=== PATIENT | female | born 1980 | race American Indian/Alaskan Native ===

== ENCOUNTER 2017-09-05 08:51 | Emergency (ER) | payer MEDICAID ==
[2017-09-05 09:11] VITALS: RESP 16; TEMP 98
--- NOTE | 2017-09-05 10:12 | ED PDOC ---
HPI: Eye Injury/Pain Time Seen by Provider: 09/05/17 09:25 Chief Complaint (Nursing): Eye Problem Chief Complaint (Provider): Left eye problem History Per: Patient History/Exam Limitations: no limitations Onset/Duration Of Symptoms: Days (2) Current Symptoms Are (Timing): Still Present Additional Complaint(s): Patient is a 37 y/o female with no significant past medical history presenting to the emergency department for left eye irritation since yesterday with associated itchiness and discharge that developed this morning. Also notes mild swelling. Denies visual changes, fever, cough, eye pain, use of contact lenses, or other complaints. PCP: Dr. Carrillo Aguayo Past Medical History Reviewed: Historical Data, Nursing Documentation, Vital Signs Vital Signs: Last Vital Signs Temp 98 F 09/05/17 09:08 Pulse 65 09/05/17 09:08 Resp 16 09/05/17 09:08 BP 145/87 09/05/17 09:08 Pulse Ox 100 09/05/17 09:08 - Medical History PMH: No Chronic Diseases - Surgical History Surgical History: - Family History Family History: States: Unknown Family Hx - Social History Current smoker - smoking cessation education provided: No Ex-Smoker (has not smoked in the last 12 months): No Alcohol: Social Drugs: Other - Home Medications Home Medications: Ambulatory Orders Medication Instructions Recorded Famotidine [Pepcid] 20 mg PO BID #28 tab 06/06/15 Ondansetron [Zofran] 4 mg PO Q8H #9 tab 06/06/15 Ibuprofen [Motrin] 600 mg PO Q6 #30 tab 01/14/17 Tobramycin 0.3% [Tobrex 0.3% Ophth 1 drop OP Q4 #1 bottle 09/05/17 Soln] - Allergies Allergies/Adverse Reactions: Allergies Allergy/AdvReac Type Severity Reaction Status Date / Time Penicillins Allergy RASH Verified 09/05/17 09:08 Review of Systems ROS Statement: Except As Marked, All Systems Reviewed And Found Negative Constitutional: Negative for: Fever Eyes: Positive for: Other (Left eye irritation with itchiness, discharge, and mild swelling). Negative for: Pain, Vision Change Respiratory: Negative for: Cough Physical Exam - Reviewed Nursing Documentation Reviewed: Yes Vital Signs Reviewed: Yes - Physical Exam Appears: Positive for: Well, Non-toxic, No Acute Distress Head Exam: Positive for: ATRAUMATIC, NORMAL INSPECTION, NORMOCEPHALIC Skin: Positive for: Normal Color, Warm, Dry Eye Exam: Positive for: EOMI, PERRL, Conjunctival injection (left eye), Other ( mild discharge of left eye). Negative for: Normal appearance, Periorbital swelling, Periorbital tenderness, Scleral icterus Neck: Positive for: Normal Cardiovascular/Chest: Positive for: Regular Rate, Rhythm Respiratory: Negative for: Accessory Muscle Use, Respiratory Distress Extremity: Positive for: Normal ROM Neurologic/Psych: Positive for: Alert, Oriented (x3) - ECG O2 Sat by Pulse Oximetry: 100 (RA) Pulse Ox Interpretation: Normal Medical Decision Making Medical Decision Making: Time: 09:55 Initial Impression: Left eye conjunctivitis Initial plan: Reevaluation Scribe Attestation: Documented by Nikky Gallagher, acting as a scribe for Lex Villafana MD. Provider Scribe Attestation: All medical record entries made by the Scribe were at my direction and personally dictated by me. I have reviewed the chart and agree that the record accurately reflects my personal performance of the history, physical exam, medical decision making, and the department course for this patient. I have also personally directed, reviewed, and agree with the discharge instructions and disposition. Disposition - Clinical Impression Clinical Impression: Conjunctivitis - Patient ED Disposition Is Patient to be Admitted: No Doctor Will See Patient In The: Office Counseled Patient/Family Regarding: Studies Performed, Diagnosis, Need For Followup - Disposition Referrals: [facility] [Outside] Disposition: Routine/Home Disposition Time: 11:00 Condition: GOOD Additional Instructions: Follow up with your PCP in 2-3 days,. Prescriptions: Tobramycin 0.3% [Tobrex 0.3% Ophth Soln] 1 drop OP Q4 #1 bottle Instructions: Conjunctivitis (ED)
[2017-09-05 11:06] VITALS: BP 132/70; PULSE 78
[2017-09-06 19:52] VITALS: O2SAT 100
== END 2017-09-05 11:05 | disposition home or self-care (01) ==
LOC: H.ER 08:51
DX: H10.9 Unspecified conjunctivitis (principal); Z88.0 Allergy status to penicillin

== ENCOUNTER 2018-10-22 05:44 | Emergency (ER) | payer MEDICAID ==
[2018-10-22 06:02] VITALS: RESP 18; O2SAT 99
[2018-10-22] MEDS ORDERED: Morphine 4 MG/ML VIAL IVP ONE (06:37)
--- NOTE | 2018-10-22 06:56 | ED PDOC ---
Upper Extremity Pain/Injury Time Seen by Provider: 10/22/18 06:14 Chief Complaint (Nursing): Upper Extremity Problem/Injury Chief Complaint (Provider): Upper Extremity Pain History Per: Patient History/Exam Limitations: no limitations Onset/Duration Of Symptoms: Days (2x days) Current Symptoms Are (Timing): Still Present Severity: Moderate Additional Complaint(s): 38 year old female with no past medical history presents to the ED complaints of left wrist pain that started 2x days ago. Patient reports waking up yesterday morning with a moderate amount of left wrist pain. Patient is unaware of injury to her left wrist, and is unsure if she slept in an uncomfortable position. Patient reports that the pain worsened in the past 24x hours. Patient reports having trouble moving her left wrist and hand today due to pain. Patient denies having any other complaints including fevers and chills. PMD: None. Past Medical History Reviewed: Historical Data, Nursing Documentation, Vital Signs Vital Signs: Last Vital Signs Temp 97.8 F 10/22/18 05:59 Pulse 64 10/22/18 05:59 Resp 18 10/22/18 05:59 BP 121/82 10/22/18 05:59 Pulse Ox 99 10/22/18 05:59 - Medical History PMH: No Chronic Diseases - Surgical History Surgical History: - Family History Family History: States: No Known Family Hx - Social History Current smoker - smoking cessation education provided: No Alcohol: None Drugs: Denies - Home Medications Home Medications: Ambulatory Orders Medication Instructions Recorded Famotidine [Pepcid] 20 mg PO BID #28 tab 06/06/15 Ondansetron [Zofran] 4 mg PO Q8H #9 tab 06/06/15 Ibuprofen [Motrin] 600 mg PO Q6 #30 tab 01/14/17 RX: Tobramycin 0.3% [Tobrex 0.3% 1 drop OP Q4 #1 bottle 09/05/17 Ophth Soln] Ibuprofen [Motrin] 600 mg PO TID 7 Days tab 10/22/18 - Allergies Allergies/Adverse Reactions: Allergies Allergy/AdvReac Type Severity Reaction Status Date / Time Penicillins Allergy RASH Verified 10/22/18 05:59 Review of Systems ROS Statement: Except As Marked, All Systems Reviewed And Found Negative Constitutional: Negative for: Fever, Chills Musculoskeletal: Positive for: Hand Pain (left wrist pain) Physical Exam - Reviewed Nursing Documentation Reviewed: Yes Vital Signs Reviewed: Yes - Physical Exam Appears: Positive for: Well, Non-toxic, No Acute Distress Head Exam: Positive for: ATRAUMATIC, NORMOCEPHALIC Pulses-Radial (L): 2+ Pulses-Radial (R): 2+ Extremity: Positive for: Tenderness (left wrist joint: tenderness to touch at ulnar surface. Warmth on palpation. (-) erythema. (+) mild edema. capillary refil <2 seconds.) Neurologic/Psych: Positive for: Alert, Oriented (3x) - Laboratory Results Result Diagrams: 10/22/18 06:45 10/22/18 06:45 - ECG O2 Sat by Pulse Oximetry: 99 (RA) Pulse Ox Interpretation: Normal Medical Decision Making Medical Decision Makin:14 Initial impression: 38 year old female with non-traumatic left wrist pain. Initial plan: * XRay wrist left 3 views * labs * reevaluation 7:00 Patient is signed out by me to Justin Driscoll MD pending labs, Xray, and reevaluation. Scribe Attestation: Documented byMishel Tubbs, acting as a scribe for Juancarlos Foster MD. Provider Scribe Attestation: All medical record entries made by the Scribe were at my direction and personally dictated by me. I have reviewed the chart and agree that the record accurately reflects my personal performance of the history, physical exam, medical decision making, and the department course for this patient. I have also personally directed, reviewed, and agree with the discharge instructions and disposition. Disposition - Clinical Impression Clinical Impression: Wrist pain - Patient ED Disposition Is Patient to be Admitted: Transfer of Care - Disposition Referrals: [facility] [Outside] - 10/23/18 Disposition: Transfer of Care Disposition Time: 07:00 Condition: STABLE Additional Instructions: Return if not better in 3 days. Prescriptions: Ibuprofen [Motrin] 600 mg PO TID 7 Days tab Instructions: Joint Pain Forms: [facility] ([place]), [facility] ED School/Work Excuse Patient Signed Over To: Justin Driscoll
[2018-10-22 07:03] LABS: BASO # 0.2 K/uL (0.0-0.2); BASO % 2.4 % (0.0-2.0); EOS % 0.7 % (0.0-4.0); HEMOGLOBIN 8.4 g/dL (12.0-16.0); LYMPH # 2.2 K/uL (1.0-4.3); LYMPH % 34.1 % (20.0-40.0); MEAN CORPUSCULAR HEMOGLOBIN 19.4 pg (27.0-31.0); MEAN CORPUSCULAR HGB CONC 29.8 g/dL (33.0-37.0); MEAN PLATELET VOLUME 9.3 fl (7.2-11.7); MONO # 0.5 K/uL (0.0-0.8); MONO % 7.2 % (0.0-10.0); NEUT # 3.5 K/uL (1.8-7.0); NEUT % 55.6 % (50.0-75.0); NRBC % 0.1 % (0.0-0.0); RBC 4.37 Mil/uL (3.80-5.20); RED CELL DISTRIBUTION WIDTH 20.3 % (11.5-14.5); WHITE BLOOD COUNT 6.4 K/uL (4.8-10.8)
[2018-10-22 07:11] LABS: ALB/GLOB RATIO 1.1 (1.0-2.1); ALBUMIN 4.1 g/dL (3.5-5.0); ALT/SGPT 18 U/L (9-52); AST/SGOT 21 U/L (14-36); BLOOD UREA NITROGEN 12 mg/dl (7-17); GFR NON-AFRICAN AMERICAN > 60
[2018-10-22 07:28] LABS: URIC ACID 3.7 mg/Dl (2.2-7.5)
--- NOTE | 2018-10-22 09:24 | ED PDOC ---
- Laboratory Results Result Diagrams: 10/22/18 06:45 10/22/18 06:45 Interpretation Of Abn Labs: no acute - ECG O2 Sat by Pulse Oximetry: 99 (RA) Pulse Ox Interpretation: Normal - Radiology X-Ray: Interpreted by Me, Viewed By Me X-Ray Interpretation: No Acute Disease - Progress ED Course And Treament: 927: Stable. AAOx3. Pain improved. FU with pcp. Medical Decision Making Medical Decision Making: Time: 0700 -- Patient with wrist pain endorsed to me by Dr. Foster, pending follow up on XR and labs. Scribe Attestation: Documented by Shirley Moore, acting as a scribe for Justin Driscoll MD. Provider Scribe Attestation: All medical record entries made by the Scribe were at my direction and person ally dictated by me. I have reviewed the chart and agree that the record accurately reflects my personal performance of the history, physical exam, medical decision making, and the department course for this patient. I have also personally directed, reviewed, and agree with the discharge instructions and disposition. Disposition - Clinical Impression Clinical Impression: Wrist pain - POA Present On Arrival: None - Disposition Referrals: [facility] [Outside] - 10/23/18 Disposition: Routine/Home Disposition Time: 09:27 Condition: STABLE Additional Instructions: Return if not better in 3 days. Prescriptions: Ibuprofen [Motrin] 600 mg PO TID 7 Days tab Instructions: Joint Pain Forms: [facility] ([place]ese), [facility] ED School/Work Excuse
[2018-10-22 09:52] VITALS: BP 121/74; PULSE 82; TEMP 98.1
--- NOTE | 2018-10-22 11:12 | RAD ---
Date of service: 10/22/2018 PROCEDURE: Right Wrist Radiographs. HISTORY: pain COMPARISON: None. FINDINGS: BONES: Normal. No fracture. JOINTS: Normal. No dislocation. SOFT TISSUES: Normal. OTHER FINDINGS: None. IMPRESSION: Normal right wrist radiographs.
== END 2018-10-22 09:50 | disposition home or self-care (01) ==
LOC: H.ER 05:44
DX: M25.531 Pain in right wrist (principal); Z88.0 Allergy status to penicillin
CPT/HCPCS: 73110; 80053; 84550; 85025; 96374; 99284; J1885; J2270

== ENCOUNTER 2018-12-19 10:31 | Emergency (ER) | payer MEDICAID ==
[2018-12-19 10:47] VITALS: BMI 35.1
--- NOTE | 2018-12-19 11:43 | RAD ---
Date of service: 12/19/2018 HISTORY: chest pain COMPARISON: 01/16/2009. TECHNIQUE: Chest PA and lateral FINDINGS: LUNGS: Pleural base mass left upper lobe. The finding is marked on the study for review. This was not seen previously. This may in fact emanate from the 1st rib. PLEURA: No significant pleural effusion identified. No pneumothorax apparent. CARDIOVASCULAR: No aortic atherosclerotic calcification present. Normal cardiac size. No pulmonary vascular congestion. OSSEOUS STRUCTURES: No significant abnormalities. VISUALIZED UPPER ABDOMEN: Normal. OTHER FINDINGS: None. IMPRESSION: Left upper lobe mass/pleural base finding not seen previously. Follow-up recommended. As per institutional protocol the study has been referred to the physician nursing home assistant administrator folder for follow-up.
--- NOTE | 2018-12-19 11:47 | ED PDOC ---
HPI: Chest Pain Time Seen by Provider: 12/19/18 10:55 Chief Complaint (Nursing): Chest Pain Chief Complaint (Provider): chest pain History Per: Patient History/Exam Limitations: no limitations Onset/Duration Of Symptoms: Days (2), Gradual Current Symptoms Are (Timing): Still Present Severity: Moderate Quality: Sharp, Tightness Associated Symptoms: Dyspnea. denies: Nausea Exacerbating Factors: Deep Breathing Additional Complaint(s): 38yo female c/o central chest pain initially radiating to left arm now radiating to right arm associated with mild dyspnea. Worsens when takes a deep breath. Denies syncope, fever, cough, dizziness or palpitations. No prior hx of similar pain. Past Medical History Reviewed: Historical Data, Nursing Documentation, Vital Signs Vital Signs: Last Vital Signs Temp 97 F L 12/19/18 10:44 Pulse 67 12/19/18 11:31 Resp 18 12/19/18 10:44 BP 115/70 12/19/18 10:44 Pulse Ox 100 12/19/18 10:44 - Medical History PMH: No Chronic Diseases - Surgical History Surgical History: - Family History Family History: States: Unknown Family Hx - Social History Current smoker - smoking cessation education provided: No - Home Medications Home Medications: Ambulatory Orders Medication Instructions Recorded Famotidine [Pepcid] 20 mg PO BID #28 tab 06/06/15 Ondansetron [Zofran] 4 mg PO Q8H #9 tab 06/06/15 Ibuprofen [Motrin] 600 mg PO Q6 #30 tab 01/14/17 Tobramycin 0.3% [Tobrex 0.3% Ophth 1 drop OP Q4 #1 bottle 09/05/17 Soln] Ibuprofen [Motrin] 600 mg PO TID 7 Days tab 10/22/18 Ferrous Sulfate [Feosol] 325 mg PO BID #30 tab 12/19/18 Ibuprofen [Motrin Tab] 600 mg PO Q6 PRN #15 tab 12/19/18 - Allergies Allergies/Adverse Reactions: Allergies Allergy/AdvReac Type Severity Reaction Status Date / Time Penicillins Allergy RASH Verified 12/19/18 10:51 Review of Systems Constitutional: Negative for: Fever Cardiovascular: Positive for: Chest Pain. Negative for: Palpitations, Orthopnea Respiratory: Positive for: Shortness of Breath. Negative for: Cough Gastrointestinal: Negative for: Nausea Genitourinary Female: Negative for: Dysuria Musculoskeletal: Negative for: Neck Pain Skin: Negative for: Rash, Lesions Neurological: Negative for: Weakness Physical Exam - Reviewed Nursing Documentation Reviewed: Yes - Physical Exam Appears: Positive for: Well, Non-toxic, No Acute Distress Skin: Positive for: Normal Color, Warm, DRY Eye Exam: Positive for: EOMI, Normal appearance, PERRL ENT: Positive for: Normal ENT Inspection Neck: Positive for: Normal, Painless ROM Cardiovascular/Chest: Positive for: Regular Rate, Rhythm Respiratory: Positive for: CNT, Normal Breath Sounds Gastrointestinal/Abdominal: Positive for: Soft, Tenderness (mild epigastric tenderness). Negative for: Guarding, Rebound Back: Positive for: Normal Inspection Extremity: Positive for: Normal ROM. Negative for: Swelling Neurologic/Psych: Positive for: Alert, Oriented. Negative for: Motor/Sensory De ficits - Laboratory Results Result Diagrams: 12/19/18 12:10 12/19/18 12:10 - ECG ECG: Positive for: Interpreted By Fl ECG Rhythm: Positive for: Normal QRS, Normal ST Segment, Sinus Rhythm. Negative for: ST/T Changes Rate: 68 O2 Sat by Pulse Oximetry: 100 Pulse Ox Interpretation: Normal Medical Decision Making Medical Decision Making: workup for atypical chest pain initiated labs and CXR obtained labs show significant anemia, only slightly trended down from prior 2018 trop neg CXR abnormal mass PORSCHE per radiologist CTA chest obtained given pain and abnormal CXRAccession No. : [id number] Patient Name / ID : JED KING / [id number] Exam Date : 12/19/2018 14:37:10 ( Approved ) Study Comment : Sex / Age : F / 38Y Creator : Surendra Elena MD Dictator : Surendra Elena MD Superintendent Police : Substation Wireman : Surendra Elena MD Approver2 : Report Date : 12/19/2018 15:23:43 My Comment : Date of service: 12/19/2018 PROCEDURE: CT Chest with contrast (Pulmonary Angiogram) HISTORY: chest pain, abnormal CXR, PORSCHE mass COMPARISON: December 19, 2018 single-view chest TECHNIQUE: Axial computed tomography images were obtained of the chest in the pulmonary arterial phase of enhancement. Coronal and sagittal reformatted images were created and reviewed. Intravenous contrast dose: 99 cc Visipaque 320 Mean Hounsfield value in the main pulmonary artery: 200.10 Radiation dose: Total exam DLP = 374.10 mGy-cm. This CT exam was performed using one or more of the following dose reduction techniques: Automated exposure control, adjustment of the mA and/or kV according to patient size, and/or use of iterative reconstruction technique. FINDINGS: PULMONARY ARTERIES: No large, central or saddle embolism identified. Qualitative and quantitative assessment of opacification of the pulmonary arteries precludes assessment for pulmonary embolic disease beyond the segmental branches. AORTA: No acute findings. No thoracic aortic aneurysm. No atherosclerotic calcification or mural plaque present. LUNGS: Unremarkable. No nodule, mass or pulmonary consolidation. PLEURAL SPACES: The mass identified recent chest x-ray appears to osseous with mean Hounsfield unit values exceeding 1000. The mass measures 11 mm. There is no clear tissue with the adjacent rib. It is likely of a benign etiology. No destruction or soft tissue component. Please refer to axial series 4/image 34. Orthogonal coronal series 601/image 72. HEART: Unremarkable. No cardiomegaly. No significant pericardial effusion. LYMPH NODES: No lymphadenopathy. BONES, CHEST WALL: No additional, suspicious osseous abnormalities. OTHER FINDINGS: Unremarkable. IMPRESSION: Unremarkable CT pulmonary angiogram. No large or central pulmonary embolus. Osseous lesion associated with the 1st rib likely benign. Iron level low States menses last about 6-7 days. Pain-free at 5pm, only notes shoulder discomfort when moves DC w iron supplementation, mandatory followup PMD for further testing. Offered hospitalization for symptomatic anemia but states wants to go home. Disposition - Clinical Impression Clinical Impression: Chest pain, Anemia - Patient ED Disposition Is Patient to be Admitted: No Counseled Patient/Family Regarding: Studies Performed, Diagnosis, Need For Followup - Disposition Referrals: [facility] [Outside] Disposition: Routine/Home Disposition Time: 17:00 Condition: STABLE Additional Instructions: Take iron pills as directed. Return to ER for any worse or new symptoms. Followup primary doctor for further testing. Prescriptions: Ferrous Sulfate [Feosol] 325 mg PO BID #30 tab Ibuprofen [Motrin Tab] 600 mg PO Q6 PRN #15 tab PRN Reason: Pain, Moderate (4-7) Instructions: Anemia Caused by Low Iron, Chest Pain (DC) Forms: [facility] ([place] Citizen) Print Language: SLOVENIAN - POA Present On Arrival: None
[2018-12-19 12:25] LABS: BASO # 0.1 K/uL (0.0-0.2); BASO % 1.2 % (0.0-2.0); EOS # 0.1 K/uL (0.0-0.7); EOS % 0.8 % (0.0-4.0); HEMOGLOBIN 7.7 g/dL (12.0-16.0); LYMPH # 2.4 K/uL (1.0-4.3); LYMPH % 34.1 % (20.0-40.0); MEAN CELL VOLUME 65.3 fl (81.0-99.0); MEAN CORPUSCULAR HEMOGLOBIN 19.1 pg (27.0-31.0); MEAN CORPUSCULAR HGB CONC 29.3 g/dL (33.0-37.0); MEAN PLATELET VOLUME 9.1 fl (7.2-11.7); MONO # 0.5 K/uL (0.0-0.8); NEUT % 56.9 % (50.0-75.0); RBC 4.01 Mil/uL (3.80-5.20); RED CELL DISTRIBUTION WIDTH 20.3 % (11.5-14.5)
--- NOTE | 2018-12-19 12:38 | CARD ---
APPROVED REPORT Date of service: 12/19/2018 EKG Measurement Heart [id number] <Conclusion> Normal sinus rhythm Normal ECG
[2018-12-19 12:39] LABS: SQUAMOUS EPITHIAL 4 /hpf (0-5); URINE BACTERIA RARE (<OCC); URINE BILIRUBIN NEGATIVE (NEGATIVE); URINE BLOOD NEGATIVE (NEGATIVE); URINE CLARITY SLIGHTY-CLOUDY (Clear); URINE COLOR YELLOW (YELLOW); URINE GLUCOSE (UA) NEG (NEGATIVE); URINE LEUKOCYTE ESTERASE NEG Leu/uL (Negative); URINE PROTEIN NEGATIVE (NEGATIVE); URINE UROBILINOGEN 0.2-1.0 mg/dL (0.2-1.0)
[2018-12-19 12:43] LABS: ALB/GLOB RATIO 1.1 (1.0-2.1); ALBUMIN 3.8 g/dL (3.5-5.0); ALT/SGPT 21 U/L (9-52); AST/SGOT 26 U/L (14-36); BLOOD UREA NITROGEN 12 mg/dl (7-17); CALCIUM 8.7 mg/dL (8.4-10.2); GFR NON-AFRICAN AMERICAN > 60; LIPASE 37 U/L (23-300)
--- NOTE | 2018-12-19 14:09 | US ---
Date of service: 12/19/2018 HISTORY: epigastric pain, examine RUQ and aorta COMPARISON: None. TECHNIQUE: Sonographic evaluation of the right upper quadrant of the abdomen. FINDINGS: LIVER: Measures 18.6 cm in length. Patent portal vein. Portal venous flow: Hepatopetal. Unremarkable echogenicity of the liver parenchyma. No mass. No intrahepatic bile duct dilatation. GALLBLADDER: Unremarkable. No gallstones. COMMON BILE DUCT: Measures 6.7 mm. No stones. No dilatation. PANCREAS: Unremarkable as visualized. No mass. No ductal dilatation. RIGHT KIDNEY: Measures 6 x 11.8 cm in length. Normal echogenicity. No calculus, mass, or hydronephrosis. AORTA: No aneurysmal dilatation. Proximal aorta: 1.9 x 2.1 cm Mid aorta: 1.3 x 1.7 cm Distal aorta: 1.1 x 1.6 cm IVC: Unremarkable. OTHER FINDINGS: None . IMPRESSION: No significant or acute findings to account for/ related to the clinical presentation.
[2018-12-19] MEDS ORDERED: Iodixanol 320 MG/ML 100 ML BOTTLE IV ONE (14:30)
[2018-12-19] MEDS ORDERED: Sodium Chloride 0.9% 50 ML IV ONE (14:30)
--- NOTE | 2018-12-19 15:27 | CT ---
Date of service: 12/19/2018 PROCEDURE: CT Chest with contrast (Pulmonary Angiogram) HISTORY: chest pain, abnormal CXR, PORSCHE mass COMPARISON: December 19, 2018 single-view chest TECHNIQUE: Axial computed tomography images were obtained of the chest in the pulmonary arterial phase of enhancement. Coronal and sagittal reformatted images were created and reviewed. Intravenous contrast dose: 99 cc Visipaque 320 Mean Hounsfield value in the main pulmonary artery: 200.10 Radiation dose: Total exam DLP = 374.10 mGy-cm. This CT exam was performed using one or more of the following dose reduction techniques: Automated exposure control, adjustment of the mA and/or kV according to patient size, and/or use of iterative reconstruction technique. FINDINGS: PULMONARY ARTERIES: No large, central or saddle embolism identified. Qualitative and quantitative assessment of opacification of the pulmonary arteries precludes assessment for pulmonary embolic disease beyond the segmental branches. AORTA: No acute findings. No thoracic aortic aneurysm. No atherosclerotic calcification or mural plaque present. LUNGS: Unremarkable. No nodule, mass or pulmonary consolidation. PLEURAL SPACES: The mass identified recent chest x-ray appears to osseous with mean Hounsfield unit values exceeding 1000. The mass measures 11 mm. There is no clear tissue with the adjacent rib. It is likely of a benign etiology. No destruction or soft tissue component. Please refer to axial series 4/image 34. Orthogonal coronal series 601/image 72. HEART: Unremarkable. No cardiomegaly. No significant pericardial effusion. LYMPH NODES: No lymphadenopathy. BONES, CHEST WALL: No additional, suspicious osseous abnormalities. OTHER FINDINGS: Unremarkable. IMPRESSION: Unremarkable CT pulmonary angiogram. No large or central pulmonary embolus. Osseous lesion associated with the 1st rib likely benign.
[2018-12-19 16:41] LABS: IRON 22 ug/dL (37-170)
[2018-12-19 16:50] LABS: % IRON SATURATION 6 % (20-55); TOTAL IRON BINDING CAPACITY 400 ug/dL (250-450)
[2018-12-19 17:18] LABS: FERRITIN 2.9 ng/Ml (6.24-137.0)
[2018-12-19 17:53] VITALS: BP 120/68; PULSE 56; RESP 16; TEMP 98.6; O2SAT 99
== END 2018-12-19 17:54 | disposition home or self-care (01) ==
LOC: H.ER 10:31
DX: R07.89 Other chest pain (principal); D64.9 Anemia, unspecified; Z88.0 Allergy status to penicillin
CPT/HCPCS: 71046; 71275; 76705; 80053; 81003; 81025; 82728; 83540; 83550; 83690; 84484; 85025; 93005; 96374; 99283; J1885; Q9967